=== PATIENT | female | born 1930 | race Caucasian/White ===

== ENCOUNTER 2018-06-04 14:48 | Observation (INO) ==
[2018-06-04] MEDS ORDERED: DOCUSATE SODIUM 100 MG CAPSULE PO PRN (15:02)
[2018-06-04] MEDS ORDERED: ONDANSETRON 4 MG/2 ML VIAL IV PRN (15:02)
[2018-06-04] MEDS ORDERED: ACETAMINOPHEN 325 MG TABLET PO PRN (15:02)
[2018-06-04 20:10] LABS: Basophils % 0.4 % (0.0-0.8); Eosinophils # 0.3 10*3/uL (0.0-0.87); Eosinophils % 2.7 % (0.00-10.9); Hematocrit 34.8 VOL% (35.7-47.0); Hemoglobin 10.6 GM/DL (12.0-16.0); Immature Granulocytes % 0.3 %; Immature Granulocytes Absolute 0.03 #; Lymphocytes # 1.5 10*3/uL (1.4-4.0); Lymphocytes % 15.1 % (21.3-54.2); Mean Corpuscular HGB Conc 30.5 GM/DL (32-36); Mean Corpuscular Hemoglobin 28 PG (27-34); Mean Corpuscular Volume 91.8 FL (87-102); Mean Platelet Volume 9.6 FL (9.6-12.0); Monocytes # 0.7 10*3/uL (0.11-0.8); Monocytes % 6.9 % (1.7-12.7); Neutrophils # 7.2 10*3/uL (1.4-7.4); Neutrophils % 74.6 % (38.7-73.9); Platelet Count 211 T/CUMM (130-400); Red Blood Count 3.79 MC/CUMM (3.8-5.5); White Blood Count 9.7 T/CUMM (4-12)
[2018-06-04 20:35] LABS: Albumin 3.1 G/DL (3.4-5.0); Bilirubin,Total 0.5 MG/DL (0.2-1.0); Calcium 8.5 MG/DL (8.5-10.1); Osmolality,Calculated 281.4 MOS/KG (273-304); Potassium 3.8 MMOL/L (3.5-5.1); Total Protein 6.7 G/DL (6.4-8.3)
[2018-06-04] MEDS: SODIUM CHLORIDE 0.9% 1,000 ML IV SCH (21:07)
[2018-06-04] MEDS: MEROPENEM 500 MG in SODIUM CHLORIDE 0.9% 100 ML IV SCH (21:18)
[2018-06-05] MEDS: MEROPENEM 500 MG in SODIUM CHLORIDE 0.9% 100 ML IV SCH ×3 (06:20→21:14)
[2018-06-05] MEDS: MAGNESIUM CHLORIDE 64 MG TABLET PO SCH (08:59)
[2018-06-05] MEDS: DIGOXIN 0.125 MG TABLET PO SCH (08:59)
[2018-06-05] MEDS: rOPINIRole 1 MG TABLET PO SCH ×3 (08:59→21:13)
[2018-06-05] MEDS: PANTOPRAZOLE 40 MG TABLET PO SCH (08:59)
[2018-06-05] MEDS: POTASSIUM GLUCONATE 500 MG TABLET PO SCH (08:59)
[2018-06-05] MEDS ORDERED: LIDOCAINE 1%/EPI INJ 20 ML VIAL ONE (12:18)
[2018-06-05] MEDS ORDERED: PROPOFOL 200 MG/20 ML VIAL IV ONE (12:51)
[2018-06-05] MEDS ORDERED: SEVOFLURANE 1 UNIT/15 MINUTE INH ONE (12:51)
[2018-06-05] MEDS ORDERED: PHENYLEPHRINE 1 MG/10 ML SYRINGE IV ONE (12:52)
[2018-06-05] MEDS ORDERED: ONDANSETRON 4 MG/2 ML VIAL ONE (12:52)
[2018-06-05] MEDS ORDERED: fentaNYL 100 MCG/2 ML VIAL ONE (12:52)
[2018-06-05] MEDS ORDERED: ONDANSETRON 4 MG/2 ML VIAL IV PRN (13:05)
[2018-06-05] MEDS: HYDROmorphone 2 MG/1 ML VIAL IV PRN ×2 (13:10→13:15)
[2018-06-05] MEDS: SODIUM CHLORIDE 0.9% 1,000 ML IV SCH (16:04)
[2018-06-05] MEDS ORDERED: GABAPENTIN 300 MG CAPSULE PO SCH (21:00)
[2018-06-06] MEDS: MEROPENEM 500 MG in SODIUM CHLORIDE 0.9% 100 ML IV SCH (05:30)
[2018-06-06] MEDS: DIGOXIN 0.125 MG TABLET PO SCH (08:26)
[2018-06-06] MEDS: rOPINIRole 1 MG TABLET PO SCH (08:27)
[2018-06-06] MEDS: MAGNESIUM CHLORIDE 64 MG TABLET PO SCH (08:27)
[2018-06-06] MEDS: POTASSIUM GLUCONATE 500 MG TABLET PO SCH (08:27)
[2018-06-06] MEDS: PANTOPRAZOLE 40 MG TABLET PO SCH (08:27)
[2018-06-06 11:28] VITALS: BP 160/95
== END 2018-06-06 14:54 | disposition home health service (06) ==
LOC: N.2E
PROVIDERS: ADMIT Family Medicine; ATTEND Family Medicine

== ENCOUNTER 2021-06-17 10:00 | Observation (INO) ==
[2021-06-17] MEDS ORDERED: SODIUM CHLORIDE 0.9% 1,000 ML IV STA (10:31)
[2021-06-17] MEDS ORDERED: ACETAMINOPHEN 500 MG TABLET PO STA (10:31)
[2021-06-17 10:46] LABS: Basophils % 0.4 % (0.0-0.8); Eosinophils % 0.5 % (0.00-10.9); Hematocrit 32.8 VOL% (35.7-47.0); Hemoglobin 9.7 GM/DL (12.0-16.0); Immature Granulocytes % 0.4 %; Immature Granulocytes Absolute 0.03 #; Lymphocytes # 0.2 10*3/uL (1.4-4.0); Lymphocytes % 2.9 % (21.3-54.2); Mean Corpuscular HGB Conc 29.6 GM/DL (32-36); Mean Corpuscular Volume 83.2 FL (87-102); Mean Platelet Volume 9.8 FL (9.6-12.0); Neutrophils % 94.8 % (38.7-73.9); Platelet Count 186 T/CUMM (130-400); Red Blood Count 3.94 MC/CUMM (3.8-5.5); Red Cell Distribution Width 18.8 % (9.3-17.3); White Blood Count 7.9 T/CUMM (4-12)
[2021-06-17 11:09] LABS: Albumin 3.1 G/DL (3.4-5.0); Bilirubin,Total 0.7 MG/DL (0.20-1.00); Calcium 8.8 MG/DL (8.5-10.1); Potassium 3.8 MMOL/L (3.5-5.1); Total Protein 6.5 G/DL (6.4-8.2)
[2021-06-17 11:39] LABS: Bacteria,Urine Occasional /HPF (Few); Bilirubin,Urine Negative (Negative); Blood, Urine Moderate mg/dL (Negative); Glucose,Urine (UA) Negative (Negative); Ketones,Urine Negative (Negative); Nitrite,Urine Negative (Negative); Protein,Urine Negative; RBC,Urine 1 /HPF (0-4); Squamous Epithelial Cell,Urine Occasional /HPF (0-10); Urine Appearance CLEAR (Clear); Urine Color Yellow (Yellow); Urine Urobilinogen < 2.0 EU/DL (0.2-1.0)
[2021-06-17] MEDS ORDERED: cefTRIAXone 1,000 MG in SODIUM CHLORIDE 0.9% 100 ML IV STA (11:49)
[2021-06-17 12:02] LABS: Band Neutrophils 3 % (0-10); Eosinophils 1 % (0-10); Hypochromasia 1+; Lymphocytes 5 % (20-55); Microcytosis 1+; Platelet Estimate Adequate; Segmented Neutrophils 90 % (50-85); Total Cells Counted 100
[2021-06-17] MEDS ORDERED: AZITHROMYCIN INJ 500 MG in SODIUM CHLORIDE 0.9% 250 ML IV STA (12:11)
[2021-06-17] MEDS ORDERED: ONDANSETRON 4 MG/2 ML VIAL IV PRN (12:14)
[2021-06-17] MEDS ORDERED: ACETAMINOPHEN 325 MG TABLET PO PRN (12:14)
[2021-06-17] MEDS ORDERED: LOSARTAN 25 MG TABLET PO PRN (12:16)
[2021-06-17] MEDS ORDERED: FUROSEMIDE 20 MG TABLET PO PRN (12:16)
[2021-06-17 12:27] LABS: INR 1.3; PT Patient Result 14.4 SECS (10.5-12.0)
[2021-06-17] MEDS ORDERED: rOPINIRole 0.25 MG TABLET PO STA (12:41)
[2021-06-17] MEDS: DIGOXIN 0.125 MG TABLET PO SCH (14:30)
[2021-06-17 15:05] VITALS: BP 103/76
[2021-06-17] MEDS ORDERED: rOPINIRole 1 MG TABLET PO ONE (16:11)
[2021-06-17] MEDS: SKIN HEALING OINT (AQUAPHOR) 50 GM TUBE TOP SCH (16:24)
[2021-06-17] MEDS: DOCUSATE SODIUM 100 MG CAPSULE PO SCH (20:49)
[2021-06-17] MEDS: GABAPENTIN 300 MG CAPSULE PO SCH (20:49)
[2021-06-17] MEDS: RIVAROXABAN 20 MG TABLET PO SCH (20:49)
[2021-06-18] MEDS: rOPINIRole 1 MG TABLET PO SCH (06:21)
[2021-06-18 06:44] LABS: Basophils # 0.1 10*3/uL (0.0-0.2); Basophils % 0.6 % (0.0-0.8); Eosinophils # 0.2 10*3/uL (0.0-0.87); Eosinophils % 2.6 % (0.00-10.9); Hematocrit 28.7 VOL% (35.7-47.0); Hemoglobin 8.6 GM/DL (12.0-16.0); Immature Granulocytes % 0.5 %; Immature Granulocytes Absolute 0.04 #; Lymphocytes % 13.2 % (21.3-54.2); Mean Corpuscular Volume 84.4 FL (87-102); Mean Platelet Volume 10.9 FL (9.6-12.0); Monocytes % 7.4 % (1.7-12.7); Neutrophils % 75.7 % (38.7-73.9); Platelet Count 174 T/CUMM (130-400); Red Cell Distribution Width 19.2 % (9.3-17.3); White Blood Count 7.8 T/CUMM (4-12)
[2021-06-18 07:08] LABS: Albumin 2.6 G/DL (3.4-5.0); Bilirubin,Total 0.8 MG/DL (0.20-1.00); Calcium 8.7 MG/DL (8.5-10.1); Osmolality,Calculated 284.1 MOS/KG (273-304); Potassium 4.1 MMOL/L (3.5-5.1); Total Protein 5.7 G/DL (6.4-8.2)
[2021-06-18] MEDS: DOCUSATE SODIUM 100 MG CAPSULE PO SCH ×2 (08:30→21:18)
[2021-06-18] MEDS: MAGNESIUM CHLORIDE 64 MG TABLET PO SCH (08:30)
[2021-06-18] MEDS: PANTOPRAZOLE 40 MG TABLET PO SCH (08:30)
[2021-06-18] MEDS: GABAPENTIN 300 MG CAPSULE PO SCH ×2 (08:30→21:18)
[2021-06-18] MEDS ORDERED: CHOLECALCIFEROL 1,000 UNIT TABLET PO SCH (09:00)
[2021-06-18] MEDS ORDERED: rOPINIRole 1 MG TABLET PO SCH (12:00)
[2021-06-18] MEDS ORDERED: [UNRECOGNIZED DRUG - OTHER] SL SCH (12:16)
[2021-06-18] MEDS ORDERED: CYANOCOBALAMIN 5000 MCG SL SCH (12:16)
[2021-06-18] MEDS: DIGOXIN 0.125 MG TABLET PO SCH (13:23)
[2021-06-18] MEDS: RIVAROXABAN 20 MG TABLET PO SCH (21:18)
[2021-06-18] MEDS ORDERED: LORazepam 2 MG/1 ML VIAL IV ONE (22:14)
[2021-06-18] MEDS: SKIN HEALING OINT (AQUAPHOR) 50 GM TUBE TOP SCH (22:30)
[2021-06-19 05:46] LABS: Basophils # 0.1 10*3/uL (0.0-0.2); Basophils % 0.7 % (0.0-0.8); Eosinophils # 0.2 10*3/uL (0.0-0.87); Eosinophils % 3.2 % (0.00-10.9); Hematocrit 31.1 VOL% (35.7-47.0); Hemoglobin 9.1 GM/DL (12.0-16.0); Immature Granulocytes % 0.3 %; Immature Granulocytes Absolute 0.02 #; Lymphocytes # 1.1 10*3/uL (1.4-4.0); Lymphocytes % 14.6 % (21.3-54.2); Mean Corpuscular HGB Conc 29.3 GM/DL (32-36); Mean Corpuscular Volume 84.5 FL (87-102); Mean Platelet Volume 10.8 FL (9.6-12.0); Monocytes % 8.8 % (1.7-12.7); Neutrophils % 72.4 % (38.7-73.9); Platelet Count 197 T/CUMM (130-400); Red Blood Count 3.68 MC/CUMM (3.8-5.5); Red Cell Distribution Width 19.1 % (9.3-17.3); White Blood Count 7.2 T/CUMM (4-12)
[2021-06-19] MEDS: rOPINIRole 1 MG TABLET PO SCH (05:54)
[2021-06-19 06:29] LABS: Calcium 9.3 MG/DL (8.5-10.1); Osmolality,Calculated 284.1 MOS/KG (273-304)
[2021-06-19] MEDS: GABAPENTIN 300 MG CAPSULE PO SCH (09:00)
[2021-06-19] MEDS: PANTOPRAZOLE 40 MG TABLET PO SCH (09:00)
[2021-06-19] MEDS: DOCUSATE SODIUM 100 MG CAPSULE PO SCH (09:00)
[2021-06-19] MEDS: MAGNESIUM CHLORIDE 64 MG TABLET PO SCH (09:00)
[2021-06-19] MEDS ORDERED: ASPIRIN CHEW 81 MG TABLET PO SCH (21:01)
== END 2021-06-19 12:36 | disposition home health service (06) ==
LOC: EDUNIT# → EDBD → N.ED 10:00 → N.EDINP 10:00 → N.CC 13:09
PROVIDERS: ADMIT Family Medicine; ATTEND Family Medicine